=== PATIENT | female | born 1995 | race African-American/Black ===

== ENCOUNTER 2017-01-30 16:35 | Emergency (ER) | payer OTHER ==
[~2017-01-30] VITALS: Ht 162.6 cm; Wt 64.5 kg
[~2017-01-30 16:35] MED LIST: PROM25TA5 PO; VITA65TA PO
[2017-01-30 16:37] VITALS: BP 124/64; PULSE 118; RESP 14; TEMP 98; O2SAT 98
--- NOTE | 2017-01-30 16:53 | PD ---
Physical Exam Date Seen by Provider: Jan 30, 2017 Time Seen by Provider: 16:51 Narrative 21 year old female presents to the emergency department for evaluation of abdominal cramping, vaginal bleeding. Patient reports being approximately 14 weeks . She states her LMP was beginning of October. Patient awaiting bed placement. Data Data Last Documented VS Vital Signs Date Time Temp Pulse Resp B/P Pulse Ox O2 Delivery O2 Flow Rate FiO2 01/30/17 16:37 98.0 118 14 124/64 98 MDM Supervised Visit with MATT: No Diagnosis Primary Impression: Left against medical advice Disposition: 07 AGAINST MEDICAL ADVICE Mara Moody Jan 30, 2017 16:53
[2017-02-20] MEDS ORDERED: ZANT150T2 PO (11:29)
== END 2017-01-30 17:00 | disposition left against medical advice (07) ==
LOC: NED 16:35
DX: Z53.20 Procedure and treatment not carried out because of patient's decision for unspecified reasons (principal); O46.92 Antepartum hemorrhage, unspecified, second trimester; Z3A.14 14 weeks gestation of pregnancy
CPT/HCPCS: 99281

== ENCOUNTER 2017-07-12 13:49 | Emergency (ER) | payer OTHER ==
[~2017-07-12 13:49] MED LIST changes: +CEPH-460 PO; +FERRTAB2 PO; -PROM25TA5 PO
--- NOTE | 2017-07-12 14:46 | PD ---
HPI Chief Complaint Vaginal fluid leak, 30 minutes prior to presentation 37 weeks Date Seen: Jul 12, 2017 Time Seen: 15:00 Travel History International Travel<30 Days: No Contact w/Intl Traveler<30Days: No Known Affected Area: No History of Present Illness HPI Pt is a 21 yo . care with [facility], [facility] 08-02-2017. Pt states she noticed fluid leak about 30 minutes prior to presented at ED. Active movements. Feels contractions. Weeks Gestation: 37 Para: 0 : 2 Miscarriage: 1 History Past Medical History Medical History: Denies Significant Hx Past Surgical History Surgical History: No Previous Surgery Family History Family History: Negative Social History Alcohol Use: No Tobacco Use: No Substance Abuse: No Allergies-Medications (Allergen,Severity, Reaction): Coded Allergies: No Known Allergies (Unverified , 06/23/17) Home Meds Active Scripts Cephalexin (Keflex) 500 Mg Cap, 500 MG PO Q8H for Infection, #21 CAP 0 Refills Prov:Laure Nance 06/23/17 Multi-Vit/Iron-Folic [id number] C (Ferralet) 90-1-0.012-120 mg Tab, 1 TAB PO DAILY, #30 BOTTLE 5 Refills Prov:Laure Nance 06/05/17 Vit W/ Ferrous Fumara (Vitafol-Ob) 1 Tab Tab, 1 TAB PO DAILY, #30 BOTTLE 11 Refills Prov:Laure Nance 12/25/16 Review of Systems Except as stated in HPI: all other systems reviewed are Neg Physical Exam Narrative GENERAL: Well-nourished, well-developed patient. SKIN: Warm and dry. HEAD: Normocephalic and atraumatic. EYES: No scleral icterus. No injection or drainage. ENT: No nasal drainage noted. Mucous membranes pink. Airway patent. NECK: Supple, trachea midline. No JVD. CARDIOVASCULAR: Regular rate and rhythm without murmurs, gallops, or rubs. RESPIRATORY: Breath sounds equal bilaterally. No accessory muscle use. BREASTS: Bilateral exam showed no masses , no retractions, no nipple discharge. ABDOMEN/GI: Abdomen soft, non-tender, bowel sounds present, no rebound, no guarding Gravid to [37] weeks size GENITOURINARY: External Genitalia: intact and normal in appearance BUS glands: [-] Cervix: [soft] Dilatation: [closed] Effacement: [long] Station: [-3] Presentation: [-] Membranes: [] Uterine Contractions: [2-3 minutes] FHT's: Category: [1] Baseline: [-] Reactive: [-] Variability: [-] Decels: [none-] EXTREMITIES: No cyanosis or edema. BACK: Nontender without obvious deformity. No CVA tenderness. NEUROLOGICAL: Awake and alert. Motor and sensory grossly within normal limits. Five out of 5 muscle strength in all muscle groups. Normal speech. Data Data Vital Signs Reviewed: Yes [facility] Medical Record Reviewed: Yes Interpretation(s) Amniosure negative Plan 37 weeks , uterine contractions, cervix closed Amniosure negative Will recheck in 1 hour Recheck in 1 hour, showed no cervical change. No fluid pool Diagnosis Diagnosis: Primary Impression: Vaginal discharge during in third trimester Additional Impression: with 37 weeks completed gestation Disposition: DISCHARGE HOME Condition: Good Ryder Boucher MD Jul 12, 2017 14:46
[2017-07-20] MEDS ORDERED: AMOX500T PO (16:11)
== END 2017-07-12 17:16 | disposition home or self-care (01) ==
LOC: HOBED 13:49
DX: O26.893 Other specified pregnancy related conditions, third trimester (principal); N89.8 Other specified noninflammatory disorders of vagina; Z3A.37 37 weeks gestation of pregnancy
CPT/HCPCS: 59025; 84112

== ENCOUNTER 2017-07-31 16:58 | Emergency (ER) | payer OTHER ==
[~2017-07-31] VITALS: Ht 162.6 cm; Wt 75.7 kg
[~2017-07-31 16:58] MED LIST changes: +AMOX500T PO; -CEPH-460 PO
--- NOTE | 2017-07-31 18:25 | PD ---
HPI Chief Complaint Uterine contractions. 39 weeks and 5 days Date Seen: Jul 31, 2017 Time Seen: 17:50 Travel History International Travel<30 Days: No Contact w/Intl Traveler<30Days: No Known Affected Area: No History of Present Illness HPI Pt is a 21 yo at 39 weeks and 5 days who presents with painful uterine contractions. [facility] 08-02-2017 . care with [facility]. previously complicated, Active fetyal movements. No vaginal bleeding or leaking. Weeks Gestation: 39 Para: 0 : 1 History Past Medical History Medical History: Denies Significant Hx Obstetric History Obstetric History PRIMIGRAVIDA Past Surgical History Surgical History: No Previous Surgery Family History Family History: Negative Social History Alcohol Use: No Tobacco Use: No Substance Abuse: No Allergies-Medications (Allergen,Severity, Reaction): Coded Allergies: No Known Allergies (Unverified , 07/31/17) Home Meds Active Scripts Amoxicillin (Amoxicillin) 500 Mg Tab, 500 MG PO TID for Infection, #21 TAB 0 Refills Prov:Laure Nance 07/20/17 Multi-Vit/Iron-Folic [id number]-[id number] C (Ferralet) 90-1-0.012-120 mg Tab, 1 TAB PO DAILY, #30 BOTTLE 5 Refills Prov:Laure Nance 06/05/17 Vit W/ Ferrous Fumara (Vitafol-Ob) 1 Tab Tab, 1 TAB PO DAILY, #30 BOTTLE 11 Refills Prov:Laure Nance 12/25/16 Review of Systems Except as stated in HPI: all other systems reviewed are Neg Physical Exam Narrative GENERAL: Well-nourished, well-developed patient. SKIN: Warm and dry. HEAD: Normocephalic and atraumatic. EYES: No scleral icterus. No injection or drainage. ENT: No nasal drainage noted. Mucous membranes pink. Airway patent. NECK: Supple, trachea midline. No JVD. CARDIOVASCULAR: Regular rate and rhythm without murmurs, gallops, or rubs. RESPIRATORY: Breath sounds equal bilaterally. No accessory muscle use. BREASTS: Bilateral exam showed no masses , no retractions, no nipple discharge. ABDOMEN/GI: Abdomen soft, non-tender, bowel sounds present, no rebound, no guarding Gravid to [39] weeks size Fundal Height: 39cm GENITOURINARY: External Genitalia: intact and normal in appearance BUS glands: [-] Cervix: [soft] Dilatation: [1-2cm] Effacement: [60%] Station: [-3] Presentation: [vertex] Membranes: [intact] Uterine Contractions: [every 3-4 minutes] FHT's: Category: [1] Baseline: [120s] Reactive: [-] Variability: [moderate] Decels: [none] EXTREMITIES: No cyanosis or edema. BACK: Nontender without obvious deformity. No CVA tenderness. NEUROLOGICAL: Awake and alert. Motor and sensory grossly within normal limits. Five out of 5 muscle strength in all muscle groups. Normal speech. Data Data Group B Strep: Positive MDM Interpretation(s) Prodromal labor Plan 39 weeks and 5 days, prodromal labor. Will recheck in 1 hour Observe blood pressures BP wnl 110s/70s Repeat SVE after 1 hour unchanged, 1-2cm/50%/-2 Prodromal labor. Advised labor onset could be hours to a few days. Labor precautions discussed. PO Vistaril ordered for prior to discharge. UA showed large LE. Pt already taking Amoxicillin 500mg PO TID. Has appointment with office on 08-03-2017. Diagnosis Diagnosis: Primary Impression: False labor after 37 completed weeks of gestation Additional Impression: UTI (urinary tract infection) in in third trimester Disposition: 01 DISCHARGE HOME Condition: Stable Ryder Boucher MD Jul 31, 2017 18:25
[2017-07-31 19:55] LABS: BLOOD, URINE NEG (NEG); COMMENT (UR) CULTURE INDICATED; CULTURE IF INDICATED CULTURE INDICATED; GLUCOSE,URINE NEG (NEG); KETONE, URINE NEG (NEG); NITRITE,URINE NEG (NEG); PH, URINE 6.5 (5.0-8.5); SQUAMOUS EPITHELIAL CELL URINE 2 /hpf (0-5); URINE COLOR YELLOW (YELLW/STRAW)
== END 2017-07-31 20:00 | disposition home or self-care (01) ==
LOC: HOBED 16:58
DX: O47.1 False labor at or after 37 completed weeks of gestation (principal); O23.43 Unspecified infection of urinary tract in pregnancy, third trimester; Z3A.39 39 weeks gestation of pregnancy; Z79.899 Other long term (current) drug therapy
CPT/HCPCS: 59025; 81001; 87086; 99283

== ENCOUNTER 2017-11-10 09:44 | Emergency (ER) | payer OTHER ==
[~2017-11-10] VITALS: Ht 165.1 cm; Wt 85.0 kg
[2017-11-10 09:46] VITALS: BP 148/76; PULSE 68; RESP 16; TEMP 98.1; O2SAT 100
--- NOTE | 2017-11-10 10:19 | PD ---
HPI Chief Complaint: Injury Time Seen by Provider: 10:04 Travel History International Travel<30 days: No Contact w/Intl Traveler<30days: No Traveled to known affect area: No History of Present Illness HPI 22 year-old woman presents emergent from complaining of left ankle pain. She states that yesterday she walked in on stairs. Her kids when she had a forced inversion type injury when she misstepped coming off the stairs. She is down the outside of her ankle. She is able to walk on it. She has pain when she puts on shoes that rub against it. She is not injured it before. She otherwise been well and healthy. No other complaints. History Past Medical History Medical History: Denies Significant Hx LMP: 10/2017 Menopausal: No : 1 Para: 0 Social History Alcohol Use: No Tobacco Use: No Allergies-Medications (Allergen,Severity, Reaction): Coded Allergies: No Known Allergies (Unverified , 07/31/17) Reported Meds & Prescriptions Reported Meds & Active Scripts Active Amoxicillin 500 Mg Tab 500 Mg PO TID Ferralet (Multi-Vit/Iron-Folic [id number] C) 90-1-0.012-120 mg Tab 1 Tab PO DAILY Vitafol-Ob ( Vit W/ Ferrous Fumara) 1 Tab Tab 1 Tab PO DAILY Review of Systems Except as stated in HPI: all other systems reviewed are Neg Physical Exam Narrative GENERAL: Well-appearing 22-year-old woman, no acute distress. SKIN: Warm and dry. CARDIOVASCULAR: Warm and well perfused. RESPIRATORY: Normal rate and effort. MUSCULOSKELETAL: Ankles little bit swollen, is a little bit of edema on the left ankle. There is no bony tenderness over the mediolateral malleolus, base of the fifth metatarsal, or the dorsum of the midfoot. There is no proximal calf tenderness or pain with calf squeeze. There is no ligamentous instability in the ankle. NEUROLOGICAL: Awake and alert. No gross deficits. Data Data Last Documented VS Vital Signs Date Time Temp Pulse Resp B/P (MAP) Pulse Ox O2 Delivery O2 Flow Rate FiO2 11/10/17 09:46 98.1 68 16 148/76 (100) 100 Orders Orders Splint Or Brace Apply/Monitor (11/10/17 10:16) Ed Discharge Order (11/10/17 10:17) MDM Medical Decision Making Medical Screen Exam Complete: Yes Emergency Medical Condition: Yes Differential Diagnosis Ankle strain or sprain, fracture, other Narrative Course Medical decision-making new para 22 year-old woman presents emergent removal of lateral ankle pain following an inversion type injury. Auto ankle rules are negative. Recommend against imaging. Supportive treatment. Diagnosis Primary Impression: Left ankle injury Additional Instructions: Use ibuprofen [id number] 3 times daily as needed for pain. Weight-bear as tolerated. Use wrap and splint as needed for comfort. Follow-up with her primary doctor for not well in one to 2 weeks. Med/Other Pt SpecificInfo: No Change to Meds Disposition: 01 DISCHARGE HOME Condition: Stable Adriano Mcneal MD Nov 10, 2017 10:19
== END 2017-11-10 10:31 | disposition home or self-care (01) ==
LOC: NEPD 09:44
DX: S99.912A Unspecified injury of left ankle, initial encounter (principal); X50.0XXA Overexertion from strenuous movement or load, initial encounter; Y93.01 Activity, walking, marching and hiking
CPT/HCPCS: 99282; L1906